=== PATIENT | female | born 1955 | race Two or more races ===

== ENCOUNTER 2017-08-04 20:32 | Emergency (ER) | payer OTHER ==
[~2017-08-04] VITALS: Ht 147.3 cm; Wt 68.0 kg
[~2017-08-04 20:32] MED LIST: AMIODARONE HCL200 MG PO; ASPIRIN EC81 MG ORAL; ATORVASTATIN CA20 MG ORAL; BENAZEPRIL HCL20 MG ORAL; CLINDAMYCIN HC300 MG ORAL; GLUCOPHAGE500 MG ORAL; GLYBURIDE2.5 MG PO; IBUPROFEN600 MG PO; LANTUS100 UNIT/2 SQ; LEVAQUIN500 MG ORAL; LEVOTHYROXINE125 MCG ORAL; METOPROLOL SUC100 MG ORAL; METRONIDAZOLE500 MG ORAL; NORCO 5-325 TA1 EACH PO; OMEPRAZOLE20 M2 ORAL; PERCOCET 5-3251 EACH ORAL; SYNTHROID100 MCG ORAL; TYLENOL325 MG ORAL; [UNRECOGNIZED DRUG - REMARK]
--- NOTE | 2017-08-04 21:53 | Diagnostic Imaging Report ---
EXAM: XR Right Knee, 3 views CLINICAL HISTORY: PAIN TECHNIQUE: Three views of the right knee. COMPARISON: No relevant prior studies available. FINDINGS: Bones/joints: No acute or suspicious findings. No acute fracture. No dislocation. Soft tissues: No acute or suspicious findings. IMPRESSION: Normal right knee x-rays.
[2017-08-04 22:00] VITALS: BP 145/71
[2017-08-04] MEDS ORDERED: IBUPROFEN600 MG ORAL (22:04)
--- NOTE | 2017-08-04 22:11 | Emergency Room Report ---
History of Present Illness General Chief Complaint: Lower Extremity Injury Source: Patient Present Illness HPI Patient presents with complaints of right knee pain Started approximately 2 weeks ago Patient does not recall exactly how the pain starts however does feel increased pain with ambulation Better with nonweightbearing Denies any obvious fall or trauma denies any other calf pain denies any pelvic pain she points to the medial aspect of the right knee Reports that she saw her primary physician no further examination was done and patient was placed on Motrin Allergies: Coded Allergies: PENICILLINS (Verified Allergy, Severe, rash, 06/11/12) EGG (Verified Allergy, Mild, Hives, 05/04/13) Patient History Past Medical History: see triage record Pertinent Family History: none Last Menstrual Period: NA Reviewed Nursing Documentation: PMH: Agreed; PSxH: Agreed Nursing Documentation-PMH Hx Cardiac Problems: Yes - High cholesterol Hx Hypertension: Yes Hx Diabetes: Yes Hx Cancer: No Hx Gastrointestinal Problems: Yes Hx Neurological Problems: Yes Hx Head Trauma: Yes - head surgery Hx Headaches: Yes - Migraine Hx Neurologic Surgery: Yes - Brain Tumor Review of Systems All Other Systems: negative except mentioned in HPI Physical Exam Vital Signs Date Time Temp Pulse Resp B/P (MAP) Pulse Ox O2 Delivery O2 Flow Rate FiO2 08/04/17 20:38 98.0 118 18 145/71 98 Room Air 98.1 Sp02 EP Interpretation: reviewed, normal General Appearance: well appearing, no apparent distress Head: normocephalic, atraumatic Eyes: bilateral eye PERRL, bilateral eye EOMI ENT: normal pharynx Neck: full range of motion, supple Respiratory: lungs clear Cardiovascular #1: regular rate, rhythm, no edema Gastrointestinal: non tender, soft Musculoskeletal: normal inspection - No obvious laxity, negative anterior/ posterior draw, patella is appropriate Neurologic: alert, oriented x3, responsive, elevator adjuster III-XII nml as tested Skin: normal color, no rash Lymphatic: no adenopathy Medical Decision Making Diagnostic Impression: Primary Impression: knee pain ER Course Patient's description of the pain sounds to be likely muscle skeletal/possible medial meniscal discomfort Patient's imaging study does not reveal any acute pathology Patient will likely benefit from MRI for further definitive diagnosis At this time there are no signs of joint effusion or swelling no sign of any joint infection And patient stable for close outpatient follow-up Last Vital Signs Date Time Temp Pulse Resp B/P (MAP) Pulse Ox O2 Delivery O2 Flow Rate FiO2 08/04/17 20:38 98.0 118 18 145/71 98 Room Air 98.1 Status: unchanged Disposition: HOME, SELF-CARE Condition: Stable Scripts Ibuprofen* (MOTRIN*) 600 Mg Tablet 600 MG ORAL Q8H PRN for For Pain, #20 TAB 0 Refills Prov: Theo Watkins DO 08/04/17 Referrals: [facility],REFERRING (PCP) Patient Instructions: Knee Pain, [id number] Additional Instructions: Patient is provided with the discharge instructions notified to follow up with primary doctor in the next 2-3 days otherwise return to the er with any worsening symptoms. Please note that this report is being documented using [employer] technology. This can lead to erroneous entry secondary to incorrect interpretation by the dictating instrument. Theo Watkins DO Aug 04, 2017 22:11
== END 2017-08-04 22:20 | disposition home or self-care (01) ==
LOC: EMR 20:55
DX: M25.561 Pain in right knee (principal); I10 Essential (primary) hypertension; E11.9 Type 2 diabetes mellitus without complications; E78.00 Pure hypercholesterolemia, unspecified; Z88.0 Allergy status to penicillin; Z91.012 Allergy to eggs
CPT/HCPCS: 99283

== ENCOUNTER 2018-06-07 02:14 | Emergency (ER) | payer OTHER ==
[~2018-06-07] VITALS: Ht 147.3 cm; Wt 68.0 kg
[~2018-06-07 02:14] MED LIST changes: +IBUPROFEN600 MG ORAL
--- NOTE | 2018-06-07 02:35 | NUR ---
ED Nurse Note: patient went down for CT
--- NOTE | 2018-06-07 02:51 | Emergency Room Report ---
History of Present Illness General Chief Complaint: Lower Extremity Injury Source: Patient Present Illness HPI Patient present with complaints of pain to the right ankle right knee and right hip area She reports that last week on a metal pipe fell on her right foot Patient had discomfort at that time Earlier yesterday she had a trip and fall And having increased pain to the ankle knee and right hip And presents for further eval patient reports that she fell and also hit the right side of her facial area Denies any lapse of consciousness denies any chest pain or shortness of breath pain is worse with bearing weight Patient took a Tylenol earlier with minimal relief Allergies: Coded Allergies: PENICILLINS (Verified Allergy, Severe, rash, 06/07/18) EGG (Verified Allergy, Mild, Hives, 05/04/13) Patient History Past Medical History: see triage record Pertinent Family History: none Reviewed Nursing Documentation: PMH: Agreed; PSxH: Agreed Nursing Documentation-PMH Hx Cardiac Problems: Yes - High cholesterol Hx Hypertension: Yes Hx Diabetes: Yes Hx Cancer: No Hx Gastrointestinal Problems: Yes Hx Neurological Problems: Yes - HYPOTHYROID Hx Head Trauma: Yes - head surgery Hx Headaches: Yes - Migraine Hx Neurologic Surgery: Yes - Brain Tumor Review of Systems All Other Systems: negative except mentioned in HPI Physical Exam Vital Signs Date Time Temp Pulse Resp B/P (MAP) Pulse Ox O2 Delivery O2 Flow Rate FiO2 06/07/18 02:21 98.1 70 18 132/64 96 Room Air Sp02 EP Interpretation: reviewed, normal General Appearance: well appearing, no apparent distress Head: normocephalic, atraumatic Eyes: bilateral eye PERRL, bilateral eye EOMI ENT: normal pharynx Neck: supple Respiratory: lungs clear, no respiratory distress, no retraction Cardiovascular #1: regular rate, rhythm Gastrointestinal: non tender, soft Musculoskeletal: other - Ecchymosis noted to the calcaneal area on the right ankle medially, neurovascularly intact otherwise, tender also on the right knee on palpation diffusely no obvious effusion, palpation to the right hip was also reproducing discomfort however flexion and extension was intact on the right hip Neurologic: alert, oriented x3, responsive Skin: other - Ecchymosis is noted right ankle Lymphatic: no adenopathy Procedures Splinting Splinting : Consent: Verbal Location: Right ankle Pre-Made Type: NOÉ wrap Pre-Proc Neuro Vasc Exam: normal Post-Proc Neuro Vasc Exam: normal Patient Tolerated: Well Complications: None Progress Noé wrap applied to the right ankle with improve immobilization Medical Decision Making Diagnostic Impression: Primary Impression: Injury of lower extremity Additional Impression: Ankle sprain ER Course Given the patient's history and presentation multiple imaging is obtained no obvious acute fractures are seen Patient has done significantly better with acute intervention Noé wrap was applied for further comfort Patient does not want crutches and will have close outpatient follow-up Other X-Ray Diagnostic Results Other X-Ray Diagnostic Results #1: X-Ray ordered: Right hip # of Views/Limited Vs Complete: 3 View Indication: Pain EP Interpretation: Yes Interpretation: no dislocation, no soft tissue swelling, no fractures Impression: No acute disease Electronically Signed by: Theo Watkins DO Other X-Ray Diagnostic Results #2: X-Ray ordered: Right knee # of Views/Limited Vs Complete: 4 View Indication: Pain EP Interpretation: Yes Interpretation: no dislocation, no soft tissue swelling, no fractures Impression: No acute disease Electronically Signed by: Theo Watkins DO Other X-Ray Diagnostic Results #3: X-Ray ordered: Right ankle # of Views/Limited Vs Complete: 4 View Indication: Pain EP Interpretation: Yes Interpretation: no dislocation, no soft tissue swelling, no fractures Impression: No acute disease Electronically Signed by: Theo Watkins DO Last Vital Signs Date Time Temp Pulse Resp B/P (MAP) Pulse Ox O2 Delivery O2 Flow Rate FiO2 06/07/18 02:21 98.1 70 18 132/64 96 Room Air Status: improved Disposition: HOME, SELF-CARE Condition: Improved Scripts Methocarbamol* (ROBAXIN-750*) 750 Mg Tablet 750 MG PO TID, #21 TAB 0 Refills Prov: Theo Watkins DO 06/07/18 Ibuprofen* (MOTRIN*) 600 Mg Tablet 600 MG ORAL Q8H PRN for For Pain, #20 TAB 0 Refills Prov: Theo Watkins DO 06/07/18 Additional Instructions: Patient is provided with the discharge instructions notified to follow up with primary doctor in the next 2-3 days otherwise return to the er with any worsening symptoms. Please note that this report is being documented using [employer] technology. This can lead to erroneous entry secondary to incorrect interpretation by the dictating instrument. Theo Watkins DO Jun 07, 2018 02:51
--- NOTE | 2018-06-07 02:59 | NUR ---
ED Nurse Note: Patient walked in ER by herself from home c/o right ankle pain 10/06. Per patient she fell yesterday and hurted her ankle. AAO x4, VSS at this time, skin is dry,intact,warm to touch.
[2018-06-07] MEDS ORDERED: Ketorolac 60mg Inj IM ONE (03:15)
--- NOTE | 2018-06-07 04:00 | NUR ---
ED Nurse Note: patient is back, no acute disstress noticed.
[2018-06-07] MEDS ORDERED: IBUPROFEN600 MG ORAL (04:03)
[2018-06-07] MEDS ORDERED: ROBAXIN-750750 MG PO (04:03)
--- NOTE | 2018-06-07 04:21 | NUR ---
ED Nurse Note: Splint was applyed, patient tolerate procedure well, crutches were provided.
[2018-06-07 04:23] VITALS: BP 132/64
--- NOTE | 2018-06-07 04:24 | NUR ---
ED Nurse Note: Pt cleared by health care Provider for discharge. DC instructions/prescription was given and explained to pt and verbalized understanding of teachings. All medical deviecs such as ID band removed. Pt is AAO x4, ambulatory and left with all personal belongings.
--- NOTE | 2018-06-07 09:45 | Diagnostic Imaging Report ---
Indication: Right hip pain after falling Technique: 2 views of the hip Comparison: none Findings: There are degenerative proliferative changes of the acetabulum. No acute fractures. No dislocations. The joint spaces are preserved Impression: Mild degenerative changes No acute bony trauma
--- NOTE | 2018-06-07 09:47 | Diagnostic Imaging Report ---
Indication: Right ankle pain after fall Technique: 3 views of the right ankle Comparison: none Findings: No acute fractures. No dislocations. The joint spaces are preserved. There is a small calcaneal spur Impression: No acute process
--- NOTE | 2018-06-07 09:47 | Diagnostic Imaging Report ---
Indication: Right knee pain after falling Technique: 3 views of the right knee Comparison: None Findings: No suprapatellar effusion. No acute fractures. No dislocations. The joint spaces are preserved Impression: No acute bony trauma
== END 2018-06-07 04:24 | disposition home or self-care (01) ==
LOC: EMR 02:34
DX: S93.401A Sprain of unspecified ligament of right ankle, initial encounter (principal); W01.0XXA Fall on same level from slipping, tripping and stumbling without subsequent striking against object, initial encounter; Y92.89 Other specified places as the place of occurrence of the external cause; I10 Essential (primary) hypertension; E11.9 Type 2 diabetes mellitus without complications; E03.9 Hypothyroidism, unspecified; Z91.012 Allergy to eggs; Z88.0 Allergy status to penicillin
CPT/HCPCS: 82962; 96372; 99284

== ENCOUNTER 2018-10-17 23:19 | Emergency (ER) | payer OTHER ==
[~2018-10-17] VITALS: Ht 147.3 cm; Wt 66.7 kg
[~2018-10-17 23:19] MED LIST changes: +ROBAXIN-750750 MG PO
[2018-10-17 23:40] VITALS: BP 169/79
--- NOTE | 2018-10-17 23:40 | NUR ---
ED Nurse Note: Patient walked into ED c/o right foot swelling that extends to the middle of her leg that started today
--- NOTE | 2018-10-18 01:36 | NUR ---
ED Nurse Note: US AT BEDSIDE, PT LEFT FOR US
[2018-10-18 01:40] VITALS: BP 161/66
--- NOTE | 2018-10-18 02:12 | NUR ---
ED Nurse Note: pt returned from US
--- NOTE | 2018-10-18 02:17 | Diagnostic Imaging Report ---
Indication: Right leg edema Technique: Grayscale and duplex images of the right lower extremity veins Comparison: none Findings: Grayscale and duplex images demonstrate no evidence of intraluminal thrombus. Normal phasic Doppler waveforms, demonstrating normal augmentation response and no evidence of valvular insufficiency. Normal compressibility Impression: Negative for evidence of right lower extremity deep venous thrombosis This agrees with the preliminary interpretation provided overnight by [facility]erad[facility] service.
[2018-10-18 02:33] VITALS: BP 156/68
--- NOTE | 2018-10-18 02:33 | NUR ---
ER DISCHARGE NOTE: Patient is cleared to be discharged per ERMD, pt is aox4, on room air, with stable vital signs. pt was given dc and prescription instructions, pt was able to verbalize understanding, pt id band removed. pt is able to ambulate with steady gait. pt took all belongings.
--- NOTE | 2018-10-18 04:04 | Emergency Room Report ---
History of Present Illness General Chief Complaint: Edema Source: Patient Present Illness HPI Patient presents with complaints of right leg swelling reports that she has had problems with her ligaments in the knee over the past 1 year And has had some swelling in the past however more recently noticed increased swelling to the right calf area denies any fall or trauma denies any recent travel Allergies: Coded Allergies: PENICILLINS (Verified Allergy, Severe, rash, 06/07/18) EGG (Verified Allergy, Mild, Hives, 05/04/13) Patient History Past Medical History: see triage record Last Menstrual Period: n/a Reviewed Nursing Documentation: PMH: Agreed; PSxH: Agreed Nursing Documentation-PMH Past Medical History: No History, Except For Hx Cardiac Problems: Yes - High cholesterol Hx Hypertension: Yes Hx Diabetes: Yes Hx Cancer: No Hx Gastrointestinal Problems: Yes Hx Neurological Problems: Yes - HYPOTHYROID Hx Head Trauma: Yes - head surgery Hx Headaches: Yes - Migraine Hx Neurologic Surgery: Yes - Brain Tumor Review of Systems All Other Systems: negative except mentioned in HPI Physical Exam Vital Signs Date Time Temp Pulse Resp B/P (MAP) Pulse Ox O2 Delivery O2 Flow Rate FiO2 10/17/18 23:36 98.2 70 18 169/79 (109) 96 Room Air Sp02 EP Interpretation: reviewed, normal General Appearance: well appearing, no apparent distress Head: normocephalic, atraumatic Eyes: bilateral eye PERRL, bilateral eye EOMI ENT: hearing grossly normal, normal pharynx, TMs + canals normal, uvula midline Neck: full range of motion, supple, no meningismus, no bony tend Respiratory: lungs clear, normal breath sounds, no rhonchi, no respiratory distress, no retraction, no accessory muscle use Cardiovascular #1: normal peripheral pulses, regular rate, rhythm, no gallop, no JVD, no murmur Gastrointestinal: normal bowel sounds, non tender, soft, no mass, no organomegaly, non-distended, no guarding, no hernia, no pulsatile mass, no rebound Genitourinary: no CVA tenderness Musculoskeletal: swelling - Right calf compared to the left Neurologic: oriented x3, responsive, social problems specialist III-XII nml as tested, motor strength/ tone normal, sensory intact Psychiatric: mood/affect normal Skin: other - As above Lymphatic: normal inspection, no adenopathy Medical Decision Making Diagnostic Impression: Primary Impression: Edema ER Course Given the patient's presentation, differential such as venous insufficiency, DVT considered patient's ultrasound does not reveal any obvious DVT Patient stable for close outpatient follow-up CT/MRI/US Diagnostic Results CT/MRI/US Diagnostic Results : Impression Venous ultrasound right lower extremity for DVT Last Vital Signs Date Time Temp Pulse Resp B/P (MAP) Pulse Ox O2 Delivery O2 Flow Rate FiO2 10/18/18 02:33 98.5 67 18 156/68 100 Room Air Status: improved Disposition: HOME, SELF-CARE Condition: Stable Referrals: NON PHYSICIAN (PCP) Patient Instructions: Edema, [id number], Peripheral Edema Additional Instructions: Patient is provided with the discharge instructions notified to follow up with primary doctor in the next 2-3 days otherwise return to the er with any worsening symptoms. Please note that this report is being documented using [employer] technology. This can lead to erroneous entry secondary to incorrect interpretation by the dictating instrument. Theo Watkins DO Oct 18, 2018 04:04
== END 2018-10-18 03:20 | disposition home or self-care (01) ==
LOC: EMR 23:59
DX: R60.9 Edema, unspecified (principal); E03.9 Hypothyroidism, unspecified; E11.9 Type 2 diabetes mellitus without complications; I10 Essential (primary) hypertension; E78.00 Pure hypercholesterolemia, unspecified; Z86.03 Personal history of neoplasm of uncertain behavior; Z88.0 Allergy status to penicillin; Z91.012 Allergy to eggs
CPT/HCPCS: 93971; 99284